=== PATIENT | female | born 1960 | race Caucasian/White ===

== ENCOUNTER 2016-10-04 12:19 | Emergency (ER) | payer MEDICAID ==
[~2016-10-04] VITALS: Ht 170.2 cm; Wt 53.4 kg
[2016-10-04 12:27] VITALS: BP_DIAS 96
[2016-10-04 13:43] VITALS: BP_SYST 124
== END 2016-10-04 13:45 | disposition home or self-care (01) ==
LOC: ED 13:15
DX: J18.0 Bronchopneumonia, unspecified organism (principal); Z87.891 Personal history of nicotine dependence
CPT/HCPCS: 71020; 93005; 99284